=== PATIENT | female | born 1990 | race Hispanic/Latino ===

== ENCOUNTER 2017-03-21 21:24 | Emergency (ER) | payer BC, MEDICAID ==
[2017-03-21 21:39] VITALS: RESP 20; TEMP 98.3
[2017-03-21] MEDS ORDERED: Alum-Mag Hydrox-Simethicone Susp (30 mL) PO STA (22:39)
[2017-03-21] MEDS ORDERED: Pantoprazole 40 mg EC Tab PO STA (22:39)
--- NOTE | 2017-03-21 22:43 | C.PDOC ---
History Of Present Illness 26 year old female who presents to the ER with a complaint of burning epigastric pain for the past 2 months. Patient was seen by PMD who referred her to GI; she had extensive normal labs which she brings with her on paper along with a normal upper endoscopy. Patient is tearful and anxious of possible underlying pathology; has no confidence in her GI. Denies nausea, vomiting, or diarrhea. Time Seen by Provider: 03/21/17 21:59 Chief Complaint (Nursing): Abdominal Pain History Per: Patient History/Exam Limitations: no limitations Onset/Duration Of Symptoms: Days Current Symptoms Are (Timing): Still Present Location Of Pain/Discomfort: Epigastric Radiation Of Pain To:: None Quality Of Discomfort: Burning Associated Symptoms: denies: Fever, Chills, Nausea, Vomiting, Diarrhea Exacerbating Factors: None Alleviating Factors: None Recent travel outside of the [place]: No Abnormal Vaginal Bleeding: No Past Medical History Reviewed: Historical Data, Nursing Documentation, Vital Signs Vital Signs: Last Vital Signs Temp 98.3 F 03/21/17 21:34 Pulse 81 03/21/17 23:00 Resp 20 03/21/17 23:00 BP 127/90 03/21/17 23:00 Pulse Ox 97 03/21/17 23:00 - Medical History PMH: Gastritis Surgical History: No Surg Hx Family History: States: Unknown Family Hx - Social History Hx Alcohol Use: Yes Hx Substance Use: No Review Of Systems Constitutional: Negative for: Fever, Chills, Weight loss Gastrointestinal: Positive for: Abdominal Pain (Epigastric burning worsening at night at approximately 03:00), Other (2 soft stools a day, eating mostly fruits and vegatables). Negative for: Nausea, Vomiting, Diarrhea Physical Exam - Physical Exam Appears: Non-toxic, Other (Tearful,Anxious) Skin: Normal Color, Warm, Dry Head: Atraumatic, Normacephalic Oral Mucosa: Moist Chest: Symmetrical, No Tenderness Cardiovascular: Rhythm Regular, No Murmur Respiratory: Normal Breath Sounds, No Rales, No Rhonchi, No Wheezing Gastrointestinal/Abdominal: Soft, Tenderness (Mild epigastric), No Guarding, No Rebound Neurological/Psych: Oriented x3, Normal Speech, Normal Cognition ED Course And Treatment O2 Sat by Pulse Oximetry: 100 (Room air) Pulse Ox Interpretation: Normal Progress Note: Maalox and protonix administered. Medical Decision Making Medical Decision Making: mild/mod GERD s/s for approx 1-2 months Seen by PMD referred to GI Extensive and complete normal labs and extensive hepatitis studies. 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 EXTENSIVE bedside education and plan to double Omprazole to Q12H 9A/9P Maalox 30 cc 5x/day Normal diet GERD diet follow-up with GI/PMD in 1 month PRN Disposition Doctor Will See Patient In The: Office Counseled Patient/Family Regarding: Studies Performed, Diagnosis - Disposition Referrals: Fer Steven MD [Medical Doctor] - Leda WATERS,MD Jeffrey [Non-Staff] - Disposition: HOME/ ROUTINE Disposition Time: 22:43 Condition: GOOD Additional Instructions: Suspect GERD: Double Omprazole to Q12H 9A/9P Maalox 30 cc 5x/day- with symptoms and between meals, and without food Normal diet- 3 meals/day GERD diet/diet Hygiene- avoid typical GERD provoking habits: hot/spicy/fried/ alcohol/coffee/acidic juices/large meals/ eating late/ eating and lying supine Eat nothing after 8PM, only fluids as desired. follow-up with GI/PMD in 1 month as needed Prescriptions: Omeprazole 20 mg PO Q12H #60 capsule. Instructions: Gastroesophageal Reflux Disease (ED) Forms: [employer] (Irish) - Clinical Impression Clinical Impression: Epigastric burning sensation - Scribe Statement The provider has reviewed the documentation as recorded by the Scribe Amadou Lauren All medical record entries made by the Scribe were at my direction and personally dictated by me. I have reviewed the chart and agree that the record accurately reflects my personal performance of the history, physical exam, medical decision making, and the department course for this patient. I have also personally directed, reviewed, and agree with the discharge instructions and disposition.
[2017-03-21] MEDS ORDERED: Pantoprazole 40 mg EC Tab PO ONE (22:45)
[2017-03-21] MEDS ORDERED: Aluminum Hydroxide/Magnesium Hydroxide Susp (30 mL) ONE (22:46)
[2017-03-21 23:01] VITALS: BP 127/90; PULSE 81
[2017-03-21 23:12] VITALS: O2SAT 100
== END 2017-03-21 23:00 | disposition home or self-care (01) ==
LOC: C.ER 21:24
DX: R10.13 Epigastric pain (principal)